=== PATIENT | male | born 1955 ===

== ENCOUNTER 2016-11-04 13:11 | Emergency (ER) | payer BC ==
[2016-11-04 13:28] VITALS: O2SAT 99
--- NOTE | 2016-11-04 15:48 | CT ---
PROCEDURE: CT HEAD WITHOUT CONTRAST. HISTORY: quiles COMPARISON: None available. TECHNIQUE: Axial computed tomography images were obtained through the head/brain without intravenous contrast. Radiation dose: Total exam DLP = 861 mGy-cm. This CT exam was performed using one or more of the following dose reduction techniques: Automated exposure control, adjustment of the mA and/or kV according to patient size, and/or use of iterative reconstruction technique. FINDINGS: HEMORRHAGE: No intracranial hemorrhage. BRAIN: No mass effect or edema. No suspicious parenchymal findings above or below the tentorium including the brainstem. Midline brain and appears diffusely unremarkable and there is no suspicious extra-axial fluid collection appreciated. VENTRICLES: Unremarkable. No hydrocephalus. CALVARIUM: Unremarkable. PARANASAL SINUSES: Limited right frontal sinusitis is appreciated as well as minimally in a few anterior ethmoid air cells bilaterally. MASTOID AIR CELLS: Unremarkable as visualized. No inflammatory changes. OTHER FINDINGS: None. IMPRESSION: Normal CT of the Head. Incidental limited sinusitis as per above.
[2016-11-04] MEDS ORDERED: Ampicillin/Sulbactam 3 GM in Sodium Chloride 0.9% 100 ML IVPB STA (16:00)
--- NOTE | 2016-11-04 16:08 | ED PDOC ---
HPI: Headache Time Seen by Provider: 11/04/16 14:00 Chief Complaint (Nursing): Headache Onset/Duration Of Symptoms: Gradual Current Symptoms Are (Timing): Still Present Severity: Mild Front/Back Head: 1 - left eye pain Quality: Dull Preceeding Symptoms: Visual Disturbances Associated Symptoms: Blurred Vision. denies: Photophobia, Nausea, Vomiting, Extremity Weakness Additional History Per: Patient Additional Complaint(s): c/o redness to left eye x 2 days. Pt c/o sharp headache to left side of head starting this morning, while at work pt states he felt dizzy and had blurry vision to left eye lasting approx 2 min. Headache has not resolved. no trauma or similar sx in the past no n/t/w. no cp or cough or sob. no f/c, no neck pain Past Medical History Reviewed: Historical Data, Nursing Documentation, Vital Signs Vital Signs: Last Vital Signs Temp 99.0 F 11/04/16 13:25 Pulse 73 11/04/16 13:25 Resp 17 11/04/16 13:25 BP 129/72 11/04/16 15:56 Pulse Ox 99 11/04/16 13:25 - Medical History PMH: Anxiety, HTN - Family History Family History: States: Unknown Family Hx - Living Arrangements Living Arrangements: With Family - Social History Current smoker - smoking cessation education provided: No - Allergies Allergies/Adverse Reactions: Allergies Allergy/AdvReac Type Severity Reaction Status Date / Time No Known Allergies Allergy Verified 11/04/16 13:24 Review of Systems ROS Statement: Except As Marked, All Systems Reviewed And Found Negative Constitutional: Negative for: Fever, Chills Eyes: Positive for: Vision Change, Redness (left eye) Cardiovascular: Negative for: Chest Pain, Palpitations Respiratory: Negative for: Cough, Shortness of Breath Gastrointestinal: Negative for: Nausea, Vomiting Neurological: Positive for: Headache. Negative for: Weakness, Numbness Physical Exam - Reviewed Nursing Documentation Reviewed: Yes Vital Signs Reviewed: Yes - Physical Exam Appears: Positive for: Well, No Acute Distress Head Exam: Positive for: ATRAUMATIC, NORMAL INSPECTION, NORMOCEPHALIC Eye Exam: Positive for: Normal appearance, EOMI, PERRL, Conjunctival injection ( left). Negative for: Periorbital swelling, Periorbital tenderness ENT: Positive for: Pharynx Is (clear,mmm), TM Is/Are (nml bl). Negative for: Pharyngeal Erythema, Tonsillar Exudate, Tonsillar Swelling Neck: Positive for: Normal, Painless ROM, Supple. Negative for: Decreased ROM, Limited ROM, Trachea Midline Cardiovascular/Chest: Positive for: Regular Rate, Rhythm, Chest Non Tender. Negative for: Edema, Gallop, Murmur, Bradycardia, Tachycardia Respiratory: Positive for: Normal Breath Sounds. Negative for: Decreased Breath Sounds, Accessory Muscle Use, Crackles, Rales, Rhonchi, Stridor, Wheezing , Respiratory Distress Pulses-Radial (L): 2+ Pulses-Radial (R): 2+ Gastrointestinal/Abdominal: Positive for: Normal Exam, Bowel Sounds, Soft. Negative for: Tenderness Extremity: Positive for: Normal ROM. 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 Negative for: Motor/Sensory Deficits, Aphasia, Facial Droop - ECG O2 Sat by Pulse Oximetry: 99 Pulse Ox Interpretation: Normal - Progress ED Course And Treament: PROCEDURE: CT HEAD WITHOUT CONTRAST. HISTORY: quiles COMPARISON: None available. TECHNIQUE: Axial computed tomography images were obtained through the head/brain without intravenous contrast. Radiation dose: Total exam DLP = 861 mGy-cm. This CT exam was performed using one or more of the following dose reduction techniques: Automated exposure control, adjustment of the mA and/or kV according to patient size, and/or use of iterative reconstruction technique. FINDINGS: HEMORRHAGE: No intracranial hemorrhage. BRAIN: No mass effect or edema. No suspicious parenchymal findings above or below the tentorium including the brainstem. Midline brain and appears diffusely unremarkable and there is no suspicious extra-axial fluid collection appreciated. VENTRICLES: Unremarkable. No hydrocephalus. CALVARIUM: Unremarkable. PARANASAL SINUSES: Limited right frontal sinusitis is appreciated as well as minimally in a few anterior ethmoid air cells bilaterally. MASTOID AIR CELLS: Unremarkable as visualized. No inflammatory changes. OTHER FINDINGS: None. IMPRESSION: Normal CT of the Head. Incidental limited sinusitis as per above. will have a ct orbitz to r/o cvst. give unasyn. transfer care to Dr nunes Re-evaluation Time: 16:08 Condition: Improved Disposition - Clinical Impression Clinical Impression: Acute headache, Sinusitis, acute - Patient ED Disposition Is Patient to be Admitted: Transfer of Care Counseled Patient/Family Regarding: Studies Performed, Diagnosis, Need For Followup - Disposition Disposition Time: 16:10 Condition: STABLE Instructions: Acute Headache (ED) Forms: [employer] ([place]) Patient Signed Over To: Hai Nunes III
[2016-11-04 16:25] LABS: ALB/GLOB RATIO 1.4 (1.0-2.1); ALKALINE PHOSPHATASE 67 U/L (38-126); ALT/SGPT 40 U/L (21-72); AST/SGOT 31 U/L (17-59); BASO # 0.1 K/uL (0.0-0.2); BILIRUBIN,TOTAL 0.4 mg/dl (0.2-1.3); BLOOD UREA NITROGEN 11 mg/dl (9-20); CALCIUM 9.3 mg/dL (8.4-10.2); CARBON DIOXIDE 24 mmol/L (22-30); CHLORIDE 108 mmol/L (98-107); EOS # 0.4 K/uL (0.0-0.7); EOS % 4.8 % (0.0-4.0); GFR AFRICAN-AMERICAN > 60; GLUCOSE,RANDOM 99 mg/dL (75-110); HEMATOCRIT 45.5 % (35.0-51.0); LYMPH # 2.5 K/uL (1.0-4.3); LYMPH % 31.4 % (20.0-40.0); MEAN CELL VOLUME 89.4 fl (80.0-94.0); MEAN CORPUSCULAR HEMOGLOBIN 29.3 pg (27.0-31.0); MEAN CORPUSCULAR HGB CONC 32.8 g/dL (33.0-37.0); MEAN PLATELET VOLUME 10.4 fl (7.2-11.7); MONO # 0.6 K/uL (0.0-0.8); MONO % 6.9 % (0.0-10.0); NEUT # 4.5 K/uL (1.8-7.0); NEUT % 55.9 % (50.0-75.0); NRBC % 0.1 % (0.0-0.0); POTASSIUM 4.1 MMOL/L (3.6-5.0); RED CELL DISTRIBUTION WIDTH 13.5 % (11.5-14.5); SODIUM 143 mmol/l (132-148); TOTAL PROTEIN 7.7 G/DL (6.3-8.2); WHITE BLOOD COUNT 8.1 K/uL (4.8-10.8)
--- NOTE | 2016-11-04 17:12 | ED PDOC ---
- Laboratory Results Result Diagrams: 11/04/16 15:45 11/04/16 15:45 - ECG O2 Sat by Pulse Oximetry: 99 (RA) Pulse Ox Interpretation: Normal Medical Decision Making Medical Decision Making: Time: 17:00 --Patient endorsed from Dr. Allen to pa. --Pending Orbits/Facials w/ contrast CT results Time: 18:20 --CT Orbits FINDINGS: There is a fluid level in the right frontal sinus and abnormal soft tissue in the right anterior ethmoid air cells with dehiscence in the anterior lateral of the right ethmoid sinus. There is mild circumferential mucosal thickening in the maxillary, left frontal and sphenoid sinuses and scattered mucosal thickening in the ethmoid air cells RIGHT ORBIT: RIGHT BONY ORBIT: Normal. RIGHT INTRAORBITAL STRUCTURES: Globe: Normal. Extraocular muscles: Normal. Post septal space: Normal. Optic Nerve: Normal. Lacrimal Apparatus: Normal. RIGHT PRESEPTAL SOFT TISSUES: Normal. LEFT ORBIT: LEFT BONY ORBIT: Normal. LEFT INTRAORBITAL STRUCTURES: Globe: Normal. Extraocular muscles: Normal. Post septal space: Normal. Optic Nerve: Normal. Lacrimal Apparatus: Normal. LEFT PRESEPTAL SOFT TISSUES: Normal. OTHER: There is normal enhancement in the cavernous sinuses without evidence of cavernous sinus thrombosis. No evidence of dilatation of the retro orbital veins. IMPRESSION: 1. No evidence of orbital cellulitis, subperiosteal abscess or CT evidence for cavernous sinus thrombosis. However please note MRI is more sensitive for evaluation of early cavernous sinus thrombosis an may be performed if clinically indicated. 2. Findings are most compatible with acute sinusitis in the right frontal and the right anterior ethmoid sinuses with dehiscence of the anterior lateral wall of the right ethmoid sinus. Time: 18:31 --Results were discussed with Pt. Will Follow up with ENT. 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 Upon provider reevaluation patient is feeling better, is medically stable, and requires no further treatment in the ED at this time. Patient will be discharged home with Rx for Augmentin 875-125mg and Motrin 600 mg. Counseling was provided and all questions were answered regarding diagnosis and need for follow up with Dr. Jimbo Monroy MD. There is agreement to discharge plan. Return if symptoms persist or worsen. Clinical Impression: Acute sinusitis and headache Scribe Attestation: Documented by Karla Boss, acting as a scribe for Hai Dominique MD. Provider Scribe Attestation: All medical record entries made by the Scribe were at my direction and personally dictated by me. I have reviewed the chart and agree that the record accurately reflects my personal performance of the history, physical exam, medical decision making, and the department course for this patient. I have also personally directed, reviewed, and agree with the discharge instructions and disposition. Disposition Counseled Patient/Family Regarding: Studies Performed, Diagnosis, Need For Followup, Rx Given - Clinical Impression Clinical Impression: Acute headache, Sinusitis, acute - Disposition Referrals: Jimbo Monroy MD [Staff Provider] - Disposition: Routine/Home Disposition Time: 18:32 Condition: STABLE Additional Instructions: See ENT doctor for further treatment and recommendations. Return to ER for any worse or new symptoms. Prescriptions: Amoxicillin/Clavulanate [Augmentin 875 MG-125 MG] 1 tab PO BID #14 tab Ibuprofen [Motrin Tab] 600 mg PO Q6 PRN #15 tab PRN Reason: Pain, Moderate (4-7) Instructions: Sinusitis (ED), Acute Headache (ED) Forms: [employer] (Maldivian)
[2016-11-04] MEDS ORDERED: Iohexol 300 50 ML ONE (17:29)
[2016-11-04] MEDS ORDERED: Sodium Chloride 0.9% 50 ML IV ONE (17:29)
--- NOTE | 2016-11-04 18:21 | CT ---
PROCEDURE: CT ORBITS WITH CONTRAST. HISTORY: left eye pain r/o cavernous sinus thrombosis COMPARISON: None available. TECHNIQUE: Following administration of intravenous iodinated contrast, axial CT images of the orbits were obtained. Coronal and sagittal reformats were generated. Intravenous contrast dose: 80 mL Omnipaque 300 Radiation dose: Total exam DLP = 889.64 mGy-cm. This CT exam was performed using one or more of the following dose reduction techniques: Automated exposure control, adjustment of the mA and/or kV according to patient size, and/or use of iterative reconstruction technique. FINDINGS: There is a fluid level in the right frontal sinus and abnormal soft tissue in the right anterior ethmoid air cells with dehiscence in the anterior lateral of the right ethmoid sinus. There is mild circumferential mucosal thickening in the maxillary, left frontal and sphenoid sinuses and scattered mucosal thickening in the ethmoid air cells RIGHT ORBIT: RIGHT BONY ORBIT: Normal. RIGHT INTRAORBITAL STRUCTURES: Globe: Normal. Extraocular muscles: Normal. Post septal space: Normal. Optic Nerve: Normal. Lacrimal Apparatus: Normal. RIGHT PRESEPTAL SOFT TISSUES: Normal. LEFT ORBIT: LEFT BONY ORBIT: Normal. LEFT INTRAORBITAL STRUCTURES: Globe: Normal. Extraocular muscles: Normal. Post septal space: Normal. Optic Nerve: Normal. Lacrimal Apparatus: Normal. LEFT PRESEPTAL SOFT TISSUES: Normal. OTHER: There is normal enhancement in the cavernous sinuses without evidence of cavernous sinus thrombosis. No evidence of dilatation of the retro orbital veins. IMPRESSION: 1. No evidence of orbital cellulitis, subperiosteal abscess or CT evidence for cavernous sinus thrombosis. However please note MRI is more sensitive for evaluation of early cavernous sinus thrombosis an may be performed if clinically indicated. 2. Findings are most compatible with acute sinusitis in the right frontal and the right anterior ethmoid sinuses with dehiscence of the anterior lateral wall of the right ethmoid sinus.
[2016-11-04 19:16] VITALS: BP 150/89; PULSE 78; RESP 18; TEMP 98
== END 2016-11-04 19:17 | disposition home or self-care (01) ==
LOC: H.ER 13:11
DX: H53.8 Other visual disturbances (principal); R51 Headache; J01.90 Acute sinusitis, unspecified; I10 Essential (primary) hypertension
CPT/HCPCS: 70450; 70481; 80053; 85025; 96374; 99284; J0295; Q9967